=== PATIENT | male | born 1990 | race African-American/Black ===

== ENCOUNTER 2019-10-20 12:06 | Emergency (ER) | payer OTHER ==
[2019-10-20 12:27] VITALS: BP 118/80; PULSE 73; TEMP 98.7; BMI 30.9
[2019-10-20] MEDS ORDERED: CLINDAMYCIN 600MG PREMIX IVPB 600 MG/50 ML BAG IVPB ONE (12:44)
[2019-10-20] MEDS ORDERED: CLINDAMYCIN PHOSPHATE 600 MG/4 ML VIAL ONE (13:16)
[2019-10-20 13:59] LABS: BASO % 0.8 % (0-2.0); EOS % 2.9 % (0-4.5); HEMATOCRIT 41.7 % (35.4-49); HEMOGLOBIN 13.8 GM/dL (11.7-16.9); LYMPH % 45.2 % (8-40); MCH 29.7 pg (25.7-33.7); MCHC 33.2 g/dl (32.0-35.9); MEAN CELL VOLUME 89.4 fl (80-96); MEAN PLT VOLUME 8.1 fl (7.5-11.1); MONO % 8.1 % (3.8-10.2); PLATELET COUNT 377 K/MM3 (134-434); RBC 4.66 M/mm3 (4.00-5.60); RDW 13.3 % (11.9-15.9); WHITE BLOOD COUNT 6.3 K/mm3 (4.0-10.0)
[2019-10-20 14:21] LABS: BLOOD UREA NITROGEN 11.7 mg/dL (7-18); CALCIUM 9.6 mg/dL (8.5-10.1); CREATININE 0.9 mg/dL (0.55-1.3); POTASSIUM 4.1 mmol/L (3.5-5.1)
== END 2019-10-20 17:45 | disposition home or self-care (01) ==
LOC: JER 12:06
PROC: 0H90XZZ Drainage of Scalp Skin, External Approach (ICD-10-PCS; principal; 2019-10-20)
PROC: 3E03329 Introduction of Other Anti-infective into Peripheral Vein, Percutaneous Approach (ICD-10-PCS; 2019-10-20)
DX: L02.811 Cutaneous abscess of head [any part, except face] (principal)
CPT/HCPCS: 36415; 70491-TC; 80048; 85025; 87070; 87205; 99284-25; Q9967

== ENCOUNTER 2020-11-05 23:58 | Emergency (ER) | payer OTHER ==
[2020-11-06 00:26] VITALS: BP 140/89; PULSE 98; TEMP 98.7; BMI 26.6
[2020-11-06 02:41] LABS: BASO % 1.1 % (0-2.0); EOS % 1.6 % (0-4.5); HEMATOCRIT 41.1 % (35.4-49); HEMOGLOBIN 13.7 GM/dL (11.7-16.9); LYMPH % 38.5 % (8-40); MCH 29.1 pg (25.7-33.7); MCHC 33.4 g/dl (32.0-35.9); MEAN CELL VOLUME 87.1 fl (80-96); MEAN PLT VOLUME 7.9 fl (7.5-11.1); MONO % 8.3 % (3.8-10.2); NEUT % 50.5 % (42.8-82.8); PLATELET COUNT 343 10^3/uL (134-434); RBC 4.71 M/mm3 (4.00-5.60); RDW 13.3 % (11.9-15.9); WHITE BLOOD COUNT 7.1 K/mm3 (4.0-10.0)
[2020-11-06 03:02] LABS: CALCIUM 9.5 mg/dL (8.5-10.1)
[2020-11-06 03:03] LABS: ALBUMIN 4.5 g/dl (3.4-5.0); BLOOD UREA NITROGEN 10.2 mg/dL (7-18)
[2020-11-06 03:06] LABS: CREATININE 0.9 mg/dL (0.55-1.3)
[2020-11-06 03:08] LABS: BILIRUBIN,TOTAL 0.4 mg/dL (0.2-1); TOT PROT 8.3 g/dl (6.4-8.2)
[2020-11-06 03:27] LABS: URINE APPEARANCE TURBID; URINE BILIRUBIN NEGATIVE (NEGATIVE); URINE COLOR YELLOW; URINE GLUCOSE (UA) NEGATIVE (NEGATIVE); URINE KETONE NEGATIVE (NEGATIVE); URINE LEUK ESTERASE NEGATIVE (NEGATIVE); URINE NITRITE NEGATIVE (NEGATIVE); URINE PROTEIN NEGATIVE (NEGATIVE)
[2020-11-06] MEDS ORDERED: SODIUM PHOSPHATE/NA BIPHOS 133 ML ENEMA PR ONE (04:25)
[2020-11-06] MEDS ORDERED: LIDOCAINE HCL 2% JELLY 10 ML CARTRIDGE ONE (05:24)
== END 2020-11-06 05:57 | disposition home or self-care (01) ==
LOC: JER 23:58
DX: K56.41 Fecal impaction (principal); K59.00 Constipation, unspecified
CPT/HCPCS: 36415; 74177-TC; 80053; 81003; 84443; 85025; 87086; 99285-25

== ENCOUNTER 2023-04-20 11:38 | Emergency (ER) | payer OTHER ==
[2023-04-20] MEDS ORDERED: predniSONE 20 MG TABLET (UD) PO ONE (11:58)
[2023-04-20] MEDS ORDERED: ALBUTEROL SO4 2.5/IPRATROPIUM 0.5 INH SOL 3 ML VIAL.NEB. NEB ONE ×2 (11:58→12:11)
[2023-04-20] MEDS ORDERED: guaiFENesin/D-METHORPHAN HB 10 ML UNIT-DOSE CUPS PO ONE (11:59)
[2023-04-20] MEDS ORDERED: predniSONE 20 MG TABLET (UD) ONE (12:11)
[2023-04-20] MEDS ORDERED: guaiFENesin/D-METHORPHAN HB 10 ML UNIT-DOSE CUPS ONE (12:12)
[2023-04-20 16:04] VITALS: BP 129/86; PULSE 71; RESP 18; TEMP 97.7; BMI 27.3
== END 2023-04-20 13:36 | disposition home or self-care (01) ==
LOC: JERFT 11:38
PROC: 3E0F7GC Introduction of Other Therapeutic Substance into Respiratory Tract, Via Natural or Artificial Opening (ICD-10-PCS; principal; 2023-04-20)
DX: R05.9 Cough, unspecified (principal); R09.81 Nasal congestion; J40 Bronchitis, not specified as acute or chronic
CPT/HCPCS: 71046-TC-FY; 94640; 99283-25